=== PATIENT | female | born 1930 | race Caucasian/White ===

== ENCOUNTER 2017-08-26 14:59 | Inpatient (IN) | payer MEDICARE, MEDICAID ==
[2017-08-26 15:53] LABS: #Lymphocytes 2.1 thou/uL (1.20-3.40); #Monocytes 0.8 thou/uL (0.11-0.59); #Neutrophils 3.1 thou/uL (1.40-6.50); %Basophils 0.5 % (0.0-1.0); %Eosinophils 0.7 % (0.0-10.0); %Monocytes 13.5 % (0.0-10.0); %Neutrophils 50.4 % (42.0-75.0); Hemoglobin 10.9 g/dL (12.0-16.0); Mean Corpuscular HGB CONC 34.5 g/dL (32.0-36.0); Mean Corpuscular Hemoglobin 34.9 pg (27.0-31.0); Mean Platelet Volume 7.3 fL (7.4-10.4); Platelet Count 177 thou/uL (130-400); RBC Distribution Width 12.1 % (11.5-14.5); Red Blood Cell (RBC) Count 3.13 mill/uL (4.20-5.40); White Blood Cell (WBC) Count 6.1 thou/uL (4.8-10.8)
[2017-08-26 16:14] LABS: ALT (SGPT) 39 U/L (8-55); AST (SGOT) 63 U/L (5-34); Albumin 3.5 g/dL (3.4-4.8); Alkaline Phosphatase 107 U/L (40-150); Anion Gap 11 mmol/L (10-20); BUN (Urea Nitrogen) 17 mg/dL (9.8-20.1); Bilirubin, Total 0.5 mg/dL (0.2-1.2); Calc. Creatinine Clearance 0 mL/min (70-130); Calcium 9.2 mg/dL (7.8-10.44); Carbon Dioxide 25 mmol/L (23-31); Chloride 103 mmol/L (98-107); Estimated GFR-MDRD 60; Globulin 3.1 g/dL (2.4-3.5); Glucose 96 mg/dL (83-110); Magnesium 1.8 mg/dL (1.6-2.6); Potassium 4.2 mmol/L (3.5-5.1); Protein, Total 6.6 g/dL (6.0-8.3); Sodium 135 mmol/L (136-145)
[2017-08-26 16:18] LABS: CKMB 0.9 ng/mL (0-6.6); Troponin I Less than 0.010 ng/mL (< 0.028)
--- NOTE | 2017-08-26 16:37 | RAD ---
AP CHEST: Indication: Possible pneumonia. Chest pain. Comparison: 08-24-17 IMPRESSION: Cardiomegaly and chronic lung changes are stable. Calcified granuloma is seen involving the left uppe r lobe. No acute osseous abnormality is evident. POS: [facility]
[2017-08-26] MEDS ORDERED: Water For Inject, Bacteriostat 30 ML ONE (16:44)
[2017-08-26] MEDS ORDERED: methylPREDNISolone Sod Succ/PF 125 MG/2 ML VIAL ONE (16:44)
[2017-08-26] MEDS ORDERED: Furosemide 20 MG/2 ML VIAL ONE (18:05)
[2017-08-26 22:15] LABS: Troponin I Less than 0.010 ng/mL (< 0.028)
--- NOTE | 2017-08-26 23:21 | PDOC.EVN ---
Event Note - Event Note Event Note: Patient seen and examined.
[2017-08-26] MEDS ORDERED: Senokot 8.6 MG TAB PO PRN (23:24)
[2017-08-26] MEDS ORDERED: Ondansetron ODT 4 MG TAB PO PRN (23:24)
[2017-08-26] MEDS ORDERED: Milk Of Magnesia 30 ML UDCUP PO PRN (23:24)
[2017-08-26] MEDS ORDERED: Nitroglycerin 0.4 MG TAB (25 Tab Bottle) PO PRN (23:24)
[2017-08-26] MEDS ORDERED: Ondansetron HCl/PF 4 MG/2 ML Vial IVP PRN (23:24)
[2017-08-26] MEDS ORDERED: Fleet Enema 133 ML BOT PR PRN (23:24)
[2017-08-26] MEDS ORDERED: hydrALAZINE 20 MG/ML VIAL SLOW IVP PRN (23:29)
[2017-08-26] MEDS ORDERED: traMADol HCl 50 MG TAB PO PRN (23:33)
[2017-08-26] MEDS ORDERED: Melatonin 3 MG TAB PO PRN (23:36)
[2017-08-27] MEDS: cefTRIAXone\\ROCEPHIN 1 GM in Sodium Chloride 0.9% 100 ML IVPB SCH ×2 (00:39→23:59)
[2017-08-27] MEDS: Azithromycin 500 MG in Sodium Chloride 0.9% 250 ML 250 ML IVPB SCH (00:39)
[2017-08-27 04:37] LABS: #Lymphocytes 0.7 thou/uL (1.20-3.40); #Monocytes 0.1 thou/uL (0.11-0.59); #Neutrophils 3.8 thou/uL (1.40-6.50); %Eosinophils 0.2 % (0.0-10.0); %Lymphocytes 15.6 % (21.0-51.0); %Monocytes 1.6 % (0.0-10.0); %Neutrophils 82.6 % (42.0-75.0); Hemoglobin 10.5 g/dL (12.0-16.0); Mean Corpuscular HGB CONC 34.3 g/dL (32.0-36.0); Mean Corpuscular Hemoglobin 34.7 pg (27.0-31.0); Mean Platelet Volume 7.9 fL (7.4-10.4); Platelet Count 169 thou/uL (130-400); RBC Distribution Width 12.2 % (11.5-14.5); Red Blood Cell (RBC) Count 3.02 mill/uL (4.20-5.40); White Blood Cell (WBC) Count 4.6 thou/uL (4.8-10.8)
[2017-08-27 04:54] LABS: Albumin 3.2 g/dL (3.4-4.8); Anion Gap 12 mmol/L (10-20); BUN (Urea Nitrogen) 22 mg/dL (9.8-20.1); BUN/Creatinine Ratio 20.56; Calc. Creatinine Clearance 48 mL/min (70-130); Calcium 9.1 mg/dL (7.8-10.44); Carbon Dioxide 24 mmol/L (23-31); Chloride 103 mmol/L (98-107); Estimated GFR-MDRD 49; Glucose 205 mg/dL (83-110); Magnesium 1.9 mg/dL (1.6-2.6); Phosphorus 3.9 mg/dL (2.3-4.7); Potassium 4.3 mmol/L (3.5-5.1); Sodium 135 mmol/L (136-145)
--- NOTE | 2017-08-27 06:32 | HP ---
DATE OF ADMISSION: 08/26/2017 The patient was seen and examined on 08/26/2017. The patient was sent from [facility]. Her O2 saturation at home was 82%. CHIEF COMPLAINT: Shortness of breath and possible pneumonia. HISTORY OF PRESENT ILLNESS: The patient is an 86-year-old female currently residing at [facility] in long-term care, presented to the emergency room with shortness of breath and poor appetite ove r the past 4-5 days. Her O2 sats are running low. She had mild cough without significant production . She has a history of COPD and used to be on nebulizer treatments in the past. The patient is a po or historian and not much information is available from the patient. Her daughter was present in the emergency room who is the DPOA. The patient denies any chest pain, palpitations, lightheadedness, d izziness, or syncope. The patient received 20 mg of IV Lasix with Levaquin, DuoNebs and 125 mg Solu-Medrol in the emergency room. PAST MEDICAL HISTORY: 1. COPD. 2. Coronary artery disease, status post stent placement. 3. Alzheimer's dementia. 4. Deconditioning. 5. History of temporal arteritis. 6. Congestive heart failure, ejection fraction unknown. 7. Macular degeneration. Patient is legally blind. 8. History of recurrent falls. 9. Hyperlipidemia. 10. Paroxysmal atrial fibrillation. 11. History of cerebrovascular accident. 12. Degenerative joint disease. 13. Hypertension. PAST SURGICAL HISTORY: 1. Coronary stent x2. 2. Cholecystectomy. 3. Hysterectomy. 4. Appendectomy. 5. Hip surgery. ALLERGIES: The patient has no known drug allergies. CURRENT MEDICATIONS: To be verified with [facility]. Patient cannot recall any of her medicat ions. SOCIAL HISTORY: As discussed above. She has out of hospital DNR in the chart. This will be verifie d with the daughter. For time being, she will be FULL CODE. Daughter makes decision. FAMILY HISTORY: Heart disease and congestive heart failure runs in her family. REVIEW OF SYSTEMS: Cannot be reliably obtained from the patient due to current cognitive status. PHYSICAL EXAMINATION: VITAL SIGNS: In the emergency room showed temperature 98.4, respirations 16, pulse rate of 58, blood pressure of 144/86 with O2 saturation 94% on 3 liters O2. Without O2 supplementation, her O2 sats w ere in the 80s. GENERAL: An 86-year-old female in mild respiratory distress, no audible wheezing heard. Mild access ory muscle use noted. HEENT: Head is atraumatic, normocephalic, Sclerae are anicteric. Moist mucous membrane, no oral les ion. NECK: Supple, no JVD appreciated. No carotid bruit. LUNGS: Showed scattered rhonchi with minimal wheezing. There were some rales at the right base. No significant accessory muscle use. Lungs were symmetrical. HEART: S1 and S2 present. Regular rate and rhythm, 2/6 systolic murmur over the mitral area. ABDOMEN: Soft, nontender, bowel sounds present. EXTREMITIES: No edema or calf tenderness. NEUROLOGIC: Grossly nonfocal, moves all four extremities. PSYCHIATRY: Alert, awake and oriented x3. SKIN: Warm and dry. LYMPH NODES: No palpable lymph nodes in the neck. PERIPHERAL VASCULAR: Radial pulses palpable bilaterally. MUSCULOSKELETAL: No joint swelling or tenderness. LABORATORY DATA AND IMAGING DATA: CBC showed WBC 6.1 with hemoglobin 10.9, hematocrit 31.6 and plate let 177. Chemistries showed sodium 135, potassium 4.2, chloride 103, bicarbonate 25, BUN 17, creatin ine 0.9. AST was 63, otherwise LFTs in normal range. Troponins were negative. BNP was 270. Chest x-ray by my review showed questionable right basilar infiltrate. EKG by my review showed sinus juan cardia with left ventricular hypertrophy. IMPRESSION: 1. Acute hypoxic respiratory failure. 2. Chronic obstructive pulmonary disease exacerbation. 3. Community-acquired pneumonia, suspected pneumococcal. 4. Congestive heart failure suspected acute on chronic. Echocardiogram unavailable. 5. Mild dehydration with poor appetite. 6. Chronic anemia, macrocytic. Vitamin B12 and folic acid were normal earlier this year. 7. History of cerebrovascular without significant residual deficit. 8. Alzheimer's dementia. 9. Anxiety disorder. 10. Coronary artery disease, status post stent placement. 11. Hypertension. 12. Macular degeneration. 13. History of temporal arteritis. 14. History of recurrent falls. 15. Mild hyponatremia. PLAN: The patient will be monitored on the telemetry unit. Empiric antibiotics for pneumonia will b e continued. Home medications will be verified. We will start her on nebulizer treatment. We will continue gentle diuresis. Low dose prednisone for COPD exacerbation. Physical Therapy consult and O ccupation Therapy consult. We will verify code status with the daughter in a.m. Plan of care was discussed with the patient in detail. She stated understanding.
[2017-08-27] MEDS: Budesonide 0.5 MG/2 ML NEB INH SCH ×2 (07:16→19:30)
[2017-08-27] MEDS ORDERED: Famotidine 20 MG TAB PO SCH (09:00)
[2017-08-27] MEDS ORDERED: Prevnar 13-Val Conj/PF 0.5 ML SYRINGE IM ONE (09:00)
[2017-08-27] MEDS: predniSONE 5 MG TAB PO SCH ×2 (09:10→17:00)
[2017-08-27] MEDS: Amlodipine 5 MG TAB PO SCH ×2 (09:10→20:39)
[2017-08-27] MEDS: Aspirin 325 MG TAB PO SCH (09:10)
[2017-08-27] MEDS: Cyanocobalamin (Vitamin B-12) 1,000 MCG TAB PO SCH (09:11)
[2017-08-27] MEDS: Docusate 100 MG CAP PO SCH ×2 (09:11→20:39)
[2017-08-27] MEDS: Furosemide 20 MG/2 ML VIAL SLOW IVP SCH (09:12)
[2017-08-27] MEDS: Saccharomyces boulardii 250 MG CAP PO SCH (09:12)
[2017-08-27] MEDS: Heparin 5,000 UNITS/ML VIAL SC SCH ×2 (09:12→20:38)
[2017-08-27] MEDS: Famotidine 20 MG TAB PO SCH (09:12)
[2017-08-27] MEDS: Rosuvastatin 10 MG TAB PO SCH (20:39)
[2017-08-27] MEDS: Acetaminophen 325 MG TAB PO PRN (20:46)
--- NOTE | 2017-08-27 22:24 | PDOC.PN ---
- Subjective Encounter Start Date: 08/27/17 Encounter Start Time: 08:30 Patient seen and examined for Resp failure. SOB improving. No fever. Some cough. Passed swallow eval. No new complaints. No overnight events - Objective Resuscitation Status: Resuscitation Status DNR:Do Not Resuscitate MAR Reviewed: Yes Vital Signs & Weight: Vital Signs (12 hours) Temp Pulse Pulse Pulse Resp BP BP 08/27/17 20:39 69 142/67 H 08/27/17 20:00 97.7 F 71 20 08/27/17 19:28 69 16 08/27/17 16:00 97.9 F 66 18 08/27/17 14:56 64 16 08/27/17 14:30 61 61 132/59 L 08/27/17 11:47 63 16 08/27/17 11:44 98.9 F 63 19 BP BP Pulse Ox 08/27/17 20:39 08/27/17 20:00 142/67 H 94 L 08/27/17 19:28 96 08/27/17 16:00 148/68 H 96 08/27/17 14:56 98 08/27/17 14:30 131/60 08/27/17 11:47 97 08/27/17 11:44 161/73 H 96 Weight Admit Weight 172 lb Weight 180 lb I&O: 08/26/17 08/27/17 08/28/17 06:59 06:59 06:59 Intake Total 700 Output Total 400 Balance 300 Result Diagrams: 08/27/17 03:38 08/28/17 03:27 EKG Reviewed by me: Yes (Tele SR) Phys Exam - Physical Examination Constitutional: NAD Neck: no JVD Respiratory: no wheezing Scat rales/rhonchi, Symmetrical, No accessory muscle use Cardiovascular: RRR, no rub no heaves/pulsations Gastrointestinal: soft, non-tender, no distention, positive bowel sounds Musculoskeletal: no edema Neurological: non-focal, moves all 4 limbs Dx/Plan - Plan plan discussed w/ family, continue antibiotics, PT/OT, DVT proph w/heparin, DVT proph w/SCDs IMPRESSION: 1. Acute hypoxic respiratory failure. 2. Chronic obstructive pulmonary disease exacerbation. 3. Community-acquired pneumonia, suspected pneumococcal. 4. Congestive heart failure suspected acute on chronic. Echocardiogram pending. 5. Chronic anemia, macrocytic. Vitamin B12 and folic acid were normal earlier this year. 6. Mild hyponatremia 7. Alzheimer's dementia. 8. Anxiety disorder. 9. Coronary artery disease, status post stent placement. 10. Hypertension. 11. Macular degeneration / History of temporal arteritis/History of recurrent falls/History of cerebrovascular without significant residual deficit PLAN: Cont current Atbx/low dose steroids/Nebs Await Echo Cont gentle diuresis Consult Dr Pina in AM AM labs Cont PT/OT Plan d/w son Bacilio - DNR verified Cont other meds as below Review of Systems - Review of Systems Constitutional: negative: fever, chills, sweats, weakness, malaise, other Cardiovascular: negative: chest pain, palpitations, orthopnea, paroxysmal nocturnal dyspnea, edema, light headedness, other Gastrointestinal: negative: Nausea, Vomiting, Abdominal Pain, Diarrhea, Constipation, Melena, Hematochezia, Other - Medications/Allergies Allergies/Adverse Reactions: Allergies Allergy/AdvReac Type Severity Reaction Status Date / Time No Known Drug Allergies Allergy Verified 08/26/17 20:45 Medications: Current Medications Acetaminophen (Tylenol) 650 mg PO Q4H PRN PRN Reason: Headache/Fever or Pain Last Admin: 08/27/17 20:46 Dose: 650 mg Albuterol/Ipratropium (Duoneb) 3 ml NEB [id number] SCH Last Admin: 08/27/17 19:28 Dose: 3 ml Albuterol/Ipratropium (Duoneb) 3 ml NEB [id number] PRN PRN Reason: SOB &/or Wheezing Amlodipine Besylate (Norvasc) 5 mg PO BID [facility] Last Admin: 08/27/17 20:39 Dose: 5 mg Aspirin (Aspirin) 325 mg PO DAILY [facility] Last Admin: 08/27/17 09:10 Dose: 325 mg Budesonide (Pulmicort Neb Solution) 0.5 mg INH BID-RT [facility] Last Admin: 08/27/17 19:30 Dose: 0.5 mg Cyanocobalamin (Vitamin B-12) 500 mcg PO DAILY [facility] Last Admin: 08/27/17 09:11 Dose: 500 mcg Docusate Sodium (Colace) 100 mg PO BID [facility] Last Admin: 08/27/17 20:39 Dose: 100 mg Famotidine (Pepcid) 20 mg PO DAILY [facility] Last Admin: 08/27/17 09:12 Dose: 20 mg Furosemide (Lasix) 20 mg SLOW IVP DAILY [facility] Last Admin: 08/27/17 09:12 Dose: 20 mg Heparin Sodium (Porcine) (Heparin) 5,000 units SC BID [facility] Last Admin: 08/27/17 20:38 Dose: 5,000 units Hydralazine HCl (Apresoline) 10 mg SLOW IVP Q4H PRN PRN Reason: SBP Greater Than 180 Azithromycin 500 mg/ Sodium (Chloride) 250 mls @ 250 mls/hr IVPB Q24HR [facility] Last Admin: 08/27/17 00:39 Dose: 250 mls Ceftriaxone Sodium 1 gm/ (Sodium Chloride) 100 mls @ 200 mls/hr IVPB Q24HR [facility] Last Admin: 08/27/17 00:39 Dose: 100 mls Magnesium Hydroxide (Milk Of Magnesium) 30 ml PO DAILYPRN PRN PRN Reason: Constipation Melatonin (Melatonin) 3 mg PO HS PRN PRN Reason: Insomnia Metoprolol Succinate (Toprol Xl) 25 mg PO BID [facility] Last Admin: 08/27/17 20:39 Dose: 25 mg Nitroglycerin (Nitrostat) 0.4 mg PO Q5MIN PRN PRN Reason: Chest Pain Ondansetron HCl (Zofran Odt) 4 mg PO Q6H PRN PRN Reason: Nausea/Vomiting Prednisone (Prednisone) 10 mg PO BID-[facility] Last Admin: 08/27/17 17:00 Dose: 10 mg Ranolazine (Ranexa) 1,000 mg PO BID [facility] Last Admin: 08/27/17 20:39 Dose: 1,000 mg Rosuvastatin Calcium (Crestor) 10 mg PO HS [facility] Last Admin: 08/27/17 20:39 Dose: 10 mg Saccharomyces Boulardii (Florastor) 250 mg PO DAILY [facility] Last Admin: 08/27/17 09:12 Dose: 250 mg Senna (Senokot) 2 tab PO HSPRN PRN PRN Reason: Constipation Sodium Biphosphate/Sodium Phosphate (Fleet Enema) 133 ml LA ONE PRN PRN Reason: Constipation Stop: 09/05/17 23:25 Sodium Chloride (Flush - Normal Saline) 10 ml IVF Q12HR [facility] Last Admin: 08/27/17 20:40 Dose: 10 ml Sodium Chloride (Flush - Normal Saline) 10 ml IVF PRN PRN PRN Reason: Saline Flush Tramadol HCl (Ultram) 50 mg PO Q8H PRN PRN Reason: Moderate Pain (4-6)
[2017-08-28] MEDS: Azithromycin 500 MG in Sodium Chloride 0.9% 250 ML 250 ML IVPB SCH ×2 (00:13→23:10)
[2017-08-28 04:59] LABS: Albumin 3.1 g/dL (3.4-4.8); Anion Gap 14 mmol/L (10-20); BUN (Urea Nitrogen) 24 mg/dL (9.8-20.1); BUN/Creatinine Ratio 23.76; Calc. Creatinine Clearance 53 mL/min (70-130); Calcium 9.2 mg/dL (7.8-10.44); Carbon Dioxide 24 mmol/L (23-31); Chloride 101 mmol/L (98-107); Estimated GFR-MDRD 52; Glucose 196 mg/dL (83-110); Magnesium 1.9 mg/dL (1.6-2.6); Potassium 4.1 mmol/L (3.5-5.1); Sodium 135 mmol/L (136-145)
[2017-08-28] MEDS: Budesonide 0.5 MG/2 ML NEB INH SCH ×2 (07:18→19:10)
[2017-08-28] MEDS: predniSONE 5 MG TAB PO SCH ×2 (09:07→16:59)
[2017-08-28] MEDS: Aspirin 325 MG TAB PO SCH (09:08)
[2017-08-28] MEDS: Amlodipine 5 MG TAB PO SCH ×2 (09:08→20:10)
[2017-08-28] MEDS: Cyanocobalamin (Vitamin B-12) 1,000 MCG TAB PO SCH (09:08)
[2017-08-28] MEDS: Docusate 100 MG CAP PO SCH ×2 (09:09→20:11)
[2017-08-28] MEDS: Furosemide 20 MG/2 ML VIAL SLOW IVP SCH (09:10)
[2017-08-28] MEDS: Heparin 5,000 UNITS/ML VIAL SC SCH ×2 (09:10→20:11)
[2017-08-28] MEDS: Famotidine 20 MG TAB PO SCH (09:10)
[2017-08-28] MEDS: Saccharomyces boulardii 250 MG CAP PO SCH (09:11)
--- NOTE | 2017-08-28 19:56 | PDOC.PN ---
- Subjective Encounter Start Date: 08/28/17 Encounter Start Time: 08:30 Patient seen and examined for Resp failure. SOB improving. Some dry cough +. No new complaints. No overnight events - Objective Resuscitation Status: Resuscitation Status DNR:Do Not Resuscitate MAR Reviewed: Yes Vital Signs & Weight: Vital Signs (12 hours) Temp Pulse Pulse Pulse Resp BP BP 08/28/17 19:10 64 16 08/28/17 15:50 98.3 F 62 18 08/28/17 15:09 68 16 08/28/17 13:37 61 146/65 H 08/28/17 11:22 97.8 F 60 18 08/28/17 09:30 60 140/64 08/28/17 08:00 97.8 F 60 18 BP Pulse Ox 08/28/17 19:10 93 L 08/28/17 15:50 148/67 H 95 08/28/17 15:09 95 08/28/17 13:37 08/28/17 11:22 153/68 H 100 08/28/17 09:30 08/28/17 08:00 Weight Admit Weight 172 lb Weight 173 lb 4.8 oz I&O: 08/27/17 08/28/17 08/29/17 06:59 06:59 06:59 Intake Total 700 560 960 Output Total 400 1150 400 Balance 300 -590 560 Result Diagrams: 08/27/17 03:38 08/28/17 03:27 EKG Reviewed by me: Yes (Tele SR) Phys Exam - Physical Examination Constitutional: NAD Respiratory: no wheezing, no rhonchi Scat rales at bases Cardiovascular: RRR, no rub Gastrointestinal: soft, non-tender, positive bowel sounds Musculoskeletal: no edema Neurological: moves all 4 limbs Dx/Plan - Plan DVT proph w/heparin, DVT proph w/SCDs IMPRESSION: 1. Acute hypoxic respiratory failure. 2. Chronic obstructive pulmonary disease exacerbation. improving 3. Community-acquired pneumonia, suspected pneumococcal. 4. Congestive heart failure suspected acute on chronic. 5. Chronic anemia, macrocytic. 6. Mild hyponatremia 7. Alzheimer's dementia. 8. Anxiety disorder. 9. Coronary artery disease, status post stent placement. 10. Hypertension. 11. Macular degeneration / History of temporal arteritis/History of recurrent falls/History of cerebrovascular without significant residual deficit PLAN: Await Echo Cont current Atbx/low dose steroids/Nebs Cont IV Lasix Cont PT/OT Cont other meds as below Review of Systems - Review of Systems Respiratory: Cough, Dry, SOB with Excertion. negative: Shortness of Breath, Hemoptysis, Pleuritic Pain, Sputum, Wheezing Cardiovascular: negative: chest pain, palpitations, orthopnea, paroxysmal nocturnal dyspnea, edema, light headedness, other - Medications/Allergies Allergies/Adverse Reactions: Allergies Allergy/AdvReac Type Severity Reaction Status Date / Time No Known Drug Allergies Allergy Verified 08/26/17 20:45 Medications: Current Medications Acetaminophen (Tylenol) 650 mg PO Q4H PRN PRN Reason: Headache/Fever or Pain Last Admin: 08/27/17 20:46 Dose: 650 mg Albuterol/Ipratropium (Duoneb) 3 ml NEB [id number] [facility] Last Admin: 08/28/17 19:10 Dose: 3 ml Albuterol/Ipratropium (Duoneb) 3 ml NEB [id number] PRN PRN Reason: SOB &/or Wheezing Amlodipine Besylate (Norvasc) 5 mg PO BID [facility] Last Admin: 08/28/17 09:08 Dose: 5 mg Aspirin (Aspirin) 325 mg PO DAILY [facility] Last Admin: 08/28/17 09:08 Dose: 325 mg Budesonide (Pulmicort Neb Solution) 0.5 mg INH BID-RT [facility] Last Admin: 08/28/17 19:10 Dose: 0.5 mg Cyanocobalamin (Vitamin B-12) 500 mcg PO DAILY [facility] Last Admin: 08/28/17 09:08 Dose: 500 mcg Docusate Sodium (Colace) 100 mg PO BID [facility] Last Admin: 08/28/17 09:09 Dose: 100 mg Famotidine (Pepcid) 20 mg PO DAILY [facility] Last Admin: 08/28/17 09:10 Dose: 20 mg Furosemide (Lasix) 20 mg SLOW IVP DAILY [facility] Last Admin: 08/28/17 09:10 Dose: 20 mg Heparin Sodium (Porcine) (Heparin) 5,000 units SC BID [facility] Last Admin: 08/28/17 09:10 Dose: 5,000 units Hydralazine HCl (Apresoline) 10 mg SLOW IVP Q4H PRN PRN Reason: SBP Greater Than 180 Azithromycin 500 mg/ Sodium (Chloride) 250 mls @ 250 mls/hr IVPB Q24HR [facility] Last Admin: 08/28/17 00:13 Dose: 250 mls Ceftriaxone Sodium 1 gm/ (Sodium Chloride) 100 mls @ 200 mls/hr IVPB Q24HR [facility] Last Admin: 08/27/17 23:59 Dose: 100 mls Magnesium Hydroxide (Milk Of Magnesium) 30 ml PO DAILYPRN PRN PRN Reason: Constipation Melatonin (Melatonin) 3 mg PO HS PRN PRN Reason: Insomnia Metoprolol Succinate (Toprol Xl) 25 mg PO BID [facility] Last Admin: 08/28/17 09:11 Dose: 25 mg Nitroglycerin (Nitrostat) 0.4 mg PO Q5MIN PRN PRN Reason: Chest Pain Ondansetron HCl (Zofran Odt) 4 mg PO Q6H PRN PRN Reason: Nausea/Vomiting Prednisone (Prednisone) 10 mg PO BID-[facility] Last Admin: 08/28/17 16:59 Dose: 10 mg Ranolazine (Ranexa) 1,000 mg PO BID [facility] Last Admin: 08/28/17 09:11 Dose: 1,000 mg Rosuvastatin Calcium (Crestor) 10 mg PO HS [facility] Last Admin: 08/27/17 20:39 Dose: 10 mg Saccharomyces Boulardii (Florastor) 250 mg PO DAILY [facility] Last Admin: 08/28/17 09:11 Dose: 250 mg Senna (Senokot) 2 tab PO HSPRN PRN PRN Reason: Constipation Sodium Biphosphate/Sodium Phosphate (Fleet Enema) 133 ml [place] ONE PRN PRN Reason: Constipation Stop: 09/05/17 23:25 Sodium Chloride (Flush - Normal Saline) 10 ml IVF Q12HR [facility] Last Admin: 08/28/17 09:11 Dose: 10 ml Sodium Chloride (Flush - Normal Saline) 10 ml IVF PRN PRN PRN Reason: Saline Flush Tramadol HCl (Ultram) 50 mg PO Q8H PRN PRN Reason: Moderate Pain (4-6)
[2017-08-28] MEDS: Rosuvastatin 10 MG TAB PO SCH (20:10)
--- NOTE | 2017-08-28 21:37 | CON ---
DATE OF CONSULTATION: 08/28/2017 SUBJECTIVE: Ms. Gomes is an 86-year-old female. She has dementia, so she is a poor historian. Apparently, she presented with complaints of shortness of breath. She lives at [facility]. She was admitted for further care. She reportedly has COPD. PAST MEDICAL HISTORY: 1. Otherwise remarkable for dementia. 2. History of coronary stenting in the past. 3. History of temporal arteritis. 4. History of cardiomyopathy. 5. History of legal blindness secondary to macular degeneration. 6. History of falls. 7. History of atrial fibrillation. 8. History of a cerebrovascular accident. 9. History of hypertension. PAST SURGICAL HISTORY: History of cholecystectomy, hysterectomy, appendectomy, and hip surgery. SOCIAL HISTORY: She is nonsmoker and nondrinker. ALLERGIES: She has no drug allergies. FAMILY HISTORY: Negative for lung disease in early age. There is heart disease history. REVIEW OF SYSTEMS: Not obtainable because of her dementia. PHYSICAL EXAMINATION: GENERAL: She is pleasant, resting comfortably. VITAL SIGNS: She is afebrile, heart rate 60, respiratory rate is 18, oximetry is 100% on 1 liter, blood pressure 146/65. EYES: Sclerae is anicteric. NECK: Supple. She is oriented x1. She is in no distress. She has no lymphadenopathy. LUNGS: Clear. HEART: Regular rhythm, there is grade 2/6 systolic murmur. ABDOMEN: Soft and nontender. EXTREMITIES: Without clubbing, cyanosis, or edema. IMAGING DATA: Chest radiograph is unremarkable. She has calcified granuloma in her left upper lobe. IMPRESSION AND PLAN: Chronic obstructive pulmonary disease exacerbation with bronchitis. I suspect she has returned to her baseline. She can be moved off the telemetry unit. In my opinion, she is stable to go back to her [facility] environment, probably tomorrow. I do not think she needs IV antibiotics given that she has no infiltrates on her chest radiograph. She could be adequately treated with p.o. antimicrobial. This is a 50 minute consult, greater than 50% of the time spent on the unit with coordinating care. ANDREI
[2017-08-28] MEDS: cefTRIAXone\\ROCEPHIN 1 GM in Sodium Chloride 0.9% 100 ML IVPB SCH (23:11)
[2017-08-29] MEDS: Budesonide 0.5 MG/2 ML NEB INH SCH ×2 (07:49→18:32)
[2017-08-29] MEDS: Amlodipine 5 MG TAB PO SCH ×2 (09:11→20:56)
[2017-08-29] MEDS: Cyanocobalamin (Vitamin B-12) 1,000 MCG TAB PO SCH (09:11)
[2017-08-29] MEDS: Saccharomyces boulardii 250 MG CAP PO SCH (09:11)
[2017-08-29] MEDS: predniSONE 5 MG TAB PO SCH ×2 (09:11→16:48)
[2017-08-29] MEDS: Docusate 100 MG CAP PO SCH ×2 (09:12→20:55)
[2017-08-29] MEDS: Famotidine 20 MG TAB PO SCH (09:12)
[2017-08-29] MEDS: Aspirin 325 MG TAB PO SCH (09:12)
[2017-08-29] MEDS: Furosemide 20 MG/2 ML VIAL SLOW IVP SCH (09:12)
[2017-08-29] MEDS: Heparin 5,000 UNITS/ML VIAL SC SCH ×2 (09:12→20:57)
--- NOTE | 2017-08-29 14:25 | PDOC.PN ---
- Subjective Encounter Start Date: 08/29/17 Encounter Start Time: 11:00 Pt is seen today, very lethargic and drowsy. - Objective Resuscitation Status: Resuscitation Status DNR:Do Not Resuscitate MAR Reviewed: Yes Vital Signs & Weight: Vital Signs (12 hours) Temp Pulse Pulse Resp BP BP Pulse Ox 08/29/17 13:10 98.1 F 62 18 135/65 93 L 08/29/17 10:48 62 16 91 L 08/29/17 09:28 60 153/67 H 08/29/17 08:42 93 L 08/29/17 08:30 98.3 F 70 16 94 L 08/29/17 07:48 70 16 93 L 08/29/17 07:45 98.3 F 65 17 151/69 H 94 L 08/29/17 02:55 98.0 F 60 14 140/66 93 L Weight Admit Weight 172 lb Weight 175 lb 14.4 oz I&O: 08/28/17 08/29/17 08/30/17 06:59 06:59 06:59 Intake Total 560 1710 Output Total 1150 400 Balance -590 1310 Result Diagrams: 08/27/17 03:38 08/28/17 03:27 Radiology Reviewed by me: Yes Phys Exam - Physical Examination HEENT: PERRLA, moist MMs Neck: no nodes, no JVD Respiratory: no wheezing, no rales Cardiovascular: RRR, no significant murmur Gastrointestinal: soft, non-tender Musculoskeletal: no edema, pulses present Neurological: non-focal, normal sensation Lymphatic: no nodes Skin: no rash, normal turgor Dx/Plan (1) Acute respiratory failure with hypoxia Code(s): J96.01 - ACUTE RESPIRATORY FAILURE WITH HYPOXIA Status: Acute Comment: Imrpoving On NC now. Likely from PNA and COPD (2) COPD with acute exacerbation Code(s): J44.1 - CHRONIC OBSTRUCTIVE PULMONARY DISEASE W (ACUTE) EXACERBATION Status: Acute Comment: Dr. Pina is consulted. Will folow recommedations, Continue Nebs on IV steroids. (3) CHF, acute on chronic Code(s): I50.9 - HEART FAILURE, UNSPECIFIED Status: Acute Comment: Pt is on IV lasix, COntinue to Monitor Chest Xray looks stbale from few days. (4) Pneumonia Code(s): J18.9 - PNEUMONIA, UNSPECIFIED ORGANISM Status: Acute Comment: Continue on Azithromycina nd Rocephin total 8 days Abx. (5) Hyponatremia Code(s): E87.1 - HYPO-OSMOLALITY AND HYPONATREMIA Status: Acute Comment: Improving, Continue to Monitor pt is on lasix. (6) Dementia Code(s): F03.90 - UNSPECIFIED DEMENTIA WITHOUT BEHAVIORAL DISTURBANCE Status: Acute Comment: Chronic, Worsieng since this admission. - Plan cont current plan of care, continue antibiotics, PT/OT, social media marketer, respiratory therapy, incentive spirometry, DVT proph w/lovenox * . Review of Systems - Review of Systems Constitutional: weakness, malaise Eyes: negative: Pain, Vision Change, Conjunctivae Inflammation, Eyelid Inflammation, Redness, Other ENT: negative: Ear Pain, Ear Discharge, Nose Pain, Nose Discharge, Nose Congestion, Mouth Pain, Mouth Swelling, Throat Pain, Throat Swelling, Other Respiratory: negative: Cough, Dry, Shortness of Breath, Hemoptysis, SOB with Excertion, Pleuritic Pain, Sputum, Wheezing Cardiovascular: negative: chest pain, palpitations, orthopnea, paroxysmal nocturnal dyspnea, edema, light headedness, other Gastrointestinal: negative: Nausea, Vomiting, Abdominal Pain, Diarrhea, Constipation, Melena, Hematochezia, Other Musculoskeletal: negative: Neck Pain, Shoulder Pain, Arm Pain, Back Pain, Hand Pain, Leg Pain, Foot Pain, Other Skin: negative: Rash, Lesions, Jeremias, Bruising, Other - Medications/Allergies Allergies/Adverse Reactions: Allergies Allergy/AdvReac Type Severity Reaction Status Date / Time No Known Drug Allergies Allergy Verified 08/26/17 20:45 Medications: Current Medications Acetaminophen (Tylenol) 650 mg PO Q4H PRN PRN Reason: Headache/Fever or Pain Last Admin: 08/27/17 20:46 Dose: 650 mg Albuterol/Ipratropium (Duoneb) 3 ml NEB [id number] Last Admin: 08/29/17 10:48 Dose: 3 ml Albuterol/Ipratropium (Duoneb) 3 ml NEB Q3RA-IH PRN PRN Reason: SOB &/or Wheezing Amlodipine Besylate (Norvasc) 5 mg PO BID [facility] Last Admin: 08/29/17 09:11 Dose: 5 mg Aspirin (Aspirin) 325 mg PO DAILY [facility] Last Admin: 08/29/17 09:12 Dose: 325 mg Budesonide (Pulmicort Neb Solution) 0.5 mg INH BID-RT [facility] Last Admin: 08/29/17 07:49 Dose: 0.5 mg Cyanocobalamin (Vitamin B-12) 500 mcg PO DAILY [facility] Last Admin: 08/29/17 09:11 Dose: 500 mcg Docusate Sodium (Colace) 100 mg PO BID [facility] Last Admin: 08/29/17 09:12 Dose: 100 mg Famotidine (Pepcid) 20 mg PO DAILY [facility] Last Admin: 08/29/17 09:12 Dose: 20 mg Furosemide (Lasix) 20 mg SLOW IVP DAILY [facility] Last Admin: 08/29/17 09:12 Dose: 20 mg Heparin Sodium (Porcine) (Heparin) 5,000 units SC BID [facility] Last Admin: 08/29/17 09:12 Dose: 5,000 units Hydralazine HCl (Apresoline) 10 mg SLOW IVP Q4H PRN PRN Reason: SBP Greater Than 180 Azithromycin 500 mg/ Sodium (Chloride) 250 mls @ 250 mls/hr IVPB Q24HR [facility] Last Admin: 08/28/17 23:10 Dose: 250 mls Ceftriaxone Sodium 1 gm/ (Sodium Chloride) 100 mls @ 200 mls/hr IVPB Q24HR [facility] Last Admin: 08/28/17 23:11 Dose: 100 mls Magnesium Hydroxide (Milk Of Magnesium) 30 ml PO DAILYPRN PRN PRN Reason: Constipation Melatonin (Melatonin) 3 mg PO HS PRN PRN Reason: Insomnia Metoprolol Succinate (Toprol Xl) 25 mg PO BID [facility] Last Admin: 08/29/17 09:12 Dose: 25 mg Nitroglycerin (Nitrostat) 0.4 mg PO Q5MIN PRN PRN Reason: Chest Pain Ondansetron HCl (Zofran Odt) 4 mg PO Q6H PRN PRN Reason: Nausea/Vomiting Prednisone (Prednisone) 10 mg PO BID-WM [facility] Last Admin: 08/29/17 09:11 Dose: 10 mg Ranolazine (Ranexa) 1,000 mg PO BID [facility] Last Admin: 08/29/17 09:11 Dose: 1,000 mg Rosuvastatin Calcium (Crestor) 10 mg PO HS [facility] Last Admin: 08/28/17 20:10 Dose: 10 mg Saccharomyces Boulardii (Florastor) 250 mg PO DAILY [facility] Last Admin: 08/29/17 09:11 Dose: 250 mg Senna (Senokot) 2 tab PO HSPRN PRN PRN Reason: Constipation Sodium Biphosphate/Sodium Phosphate (Fleet Enema) 133 ml WI ONE PRN PRN Reason: Constipation Stop: 09/05/17 23:25 Sodium Chloride (Flush - Normal Saline) 10 ml IVF Q12HR [facility] Last Admin: 08/29/17 09:13 Dose: 10 ml Sodium Chloride (Flush - Normal Saline) 10 ml IVF PRN PRN PRN Reason: Saline Flush Tramadol HCl (Ultram) 50 mg PO Q8H PRN PRN Reason: Moderate Pain (4-6)
[2017-08-29] MEDS: Rosuvastatin 10 MG TAB PO SCH (20:57)
[2017-08-29] MEDS: Azithromycin 500 MG in Sodium Chloride 0.9% 250 ML 250 ML IVPB SCH (22:38)
[2017-08-29] MEDS: cefTRIAXone\\ROCEPHIN 1 GM in Sodium Chloride 0.9% 100 ML IVPB SCH (22:38)
[2017-08-30] MEDS: Acetaminophen 325 MG TAB PO PRN (02:13)
[2017-08-30] MEDS: Budesonide 0.5 MG/2 ML NEB INH SCH (06:29)
[2017-08-30] MEDS: Amlodipine 5 MG TAB PO SCH (09:53)
[2017-08-30] MEDS: predniSONE 5 MG TAB PO SCH ×2 (09:53→17:04)
[2017-08-30] MEDS: Famotidine 20 MG TAB PO SCH (09:54)
[2017-08-30] MEDS: Cyanocobalamin (Vitamin B-12) 1,000 MCG TAB PO SCH (09:54)
[2017-08-30] MEDS: Aspirin 325 MG TAB PO SCH (09:54)
[2017-08-30] MEDS: Heparin 5,000 UNITS/ML VIAL SC SCH (09:54)
[2017-08-30] MEDS: Furosemide 20 MG/2 ML VIAL SLOW IVP SCH (09:54)
[2017-08-30] MEDS: Docusate 100 MG CAP PO SCH (09:54)
[2017-08-30] MEDS: Saccharomyces boulardii 250 MG CAP PO SCH (09:55)
[2017-08-30 13:29] VITALS: BMI 29.7
--- NOTE | 2017-08-30 14:14 | PQF ---
CLINICAL DOCUMENTATION IMPROVEMENT CLARIFICATION FORM: ICD-10 Updated PLEASE DO AN ADDENDUM TO THE PROGRESS NOTE WITH ANY DOCUMENTATION UPDATES OR ADDITIONS AND CARRY THROUGH TO DC SUMMARY. THANK YOU. DATE: 08/30/17 ATTN: DR. CRUZ Please exercise your independent, professional judgment in responding to the clarification form. Clinical indicators are provided on the bottom of this form for your review Please check appropriate box(s): HEART FAILURE: TYPE: [ ] Systolic / HFrEF [ x ] Diastolic / HFpEF [ ] Combined Systolic / Diastolic [ ] Other diagnosis [ ] Unable to determine In addition, please specify: Present on Admission (POA): [ x] Yes [ ] No [ ] Unable to determine For continuity of documentation, please document condition throughout progress notes and discharge summary. Thank You. CLINICAL INDICATORS - SIGNS / SYMPTOMS / LABS PROGRESS NOTE 08/29: "CHF, ACUTE ON CHRONIC" BNP (08/26): 270.6 RISKS: H/O HTN (PER H&P 08/27) H/O CAD (PER H&P 08/27) TREATMENT: LASIX (ER-08/30) TELEMETRY MONITORING ECHOCARDIOGRAM (This form is maintained as a part of the permanent medical record) 2014 [employer]. All Rights Reserved [email or web address] Office: [phone] [facility] HOSPITALReinaldo
[2017-08-30 17:03] VITALS: BP 172/72; TEMP 98.5
--- NOTE | 2017-09-01 12:46 | EKG ---
Test Reason : Blood Pressure : / mmHG Vent. Rate : 056 BPM Atrial Rate : 056 BPM P-R Int : 162 ms QRS Dur : 090 ms QT Int : 464 ms P-R-T Axes : 066 012 074 degrees QTc Int : 447 ms Sinus bradycardia Minimal voltage criteria for LVH, may be normal variant Borderline ECG Confirmed by LUISA PAUL ([id number]), production editor HEATHER HOLDER ([id number]) on 09/01/2017 12:46:14 PM Referred By: Confirmed By:LUISA APUL
== END 2017-08-30 18:52 | DRG 291 ==
LOC: ERS 14:59 → 2NO 17:39
PROVIDERS: ADMIT Internal Medicine; ATTEND Internal Medicine
DX: I11.0 Hypertensive heart disease with heart failure (principal); J13 Pneumonia due to Streptococcus pneumoniae; J96.01 Acute respiratory failure with hypoxia; J44.1 Chronic obstructive pulmonary disease with (acute) exacerbation; E87.1 Hypo-osmolality and hyponatremia; J44.0 Chronic obstructive pulmonary disease with (acute) lower respiratory infection; I50.33 Acute on chronic diastolic (congestive) heart failure; Z66 Do not resuscitate; D64.9 Anemia, unspecified; G30.9 Alzheimer's disease, unspecified; F02.80 Dementia in other diseases classified elsewhere, unspecified severity, without behavioral disturbance, psychotic disturbance, mood disturbance, and anxiety; F41.9 Anxiety disorder, unspecified; Z95.5 Presence of coronary angioplasty implant and graft; H35.30 Unspecified macular degeneration
CPT/HCPCS: 36415; 71045; 80053; 80069; 82553; 83605; 83735; 83880; 84484; 85025; 86140; 93005; 93306; 93798; 94640; 94760; 96365; 96366; 96375; A4216; G8978-GP-CK; G8979-GP-CJ; G8987-GO-CJ; G8988-GO-CI; G8996-GN-CI; G8997-GN-CI; J0456; J0696; J1644; J1940; J1956; J2930; J7050; J7620; J7626

== ENCOUNTER 2018-03-30 16:21 | Emergency (ER) | payer MEDICARE ==
--- NOTE | 2018-03-30 17:08 | CT ---
CT BRAIN WITHOUT CONTRAST: 03/30/18 HISTORY: Fall from standing. COMPARISON: None. FINDINGS: There is moderate to severe atrophy. No acute hemorrhage or infarct. No midline shift or mass effect. Ventricular size and extra-axial CSF spaces are normal. Calvarium is intact. The paranasal sinuses and mastoids are relatively clear aside from small volume fluid in the left mastoids. IMPRESSION: Chronic findings. No acute intracranial abnormality. POS: [facility]
[2018-03-30] MEDS ORDERED: Bacitracin Zinc 1 Packet ONE (17:39)
[2018-03-30 18:17] LABS: #Basophils 0.1 thou/uL (0.0-0.2); #Eosinphils 0.1 thou/uL (0.0-0.7); #Lymphocytes 2.5 thou/uL (1.20-3.40); #Monocytes 1.1 thou/uL (0.11-0.59); #Neutrophils 5.7 thou/uL (1.40-6.50); %Basophils 0.7 % (0.0-1.0); %Eosinophils 0.9 % (0.0-10.0); %Lymphocytes 26.4 % (21.0-51.0); %Monocytes 11.3 % (0.0-10.0); %Neutrophils 60.8 % (42.0-75.0); Hemoglobin 10.9 g/dL (12.0-16.0); Mean Corpuscular HGB CONC 33.2 g/dL (32.0-36.0); Mean Platelet Volume 8.2 fL (7.4-10.4); Platelet Count 210 thou/uL (130-400); RBC Distribution Width 11.8 % (11.5-14.5); White Blood Cell (WBC) Count 9.4 thou/uL (4.8-10.8)
[2018-03-30 18:32] LABS: MDiff Complete? YES; Macrocytosis SLIGHT = 6-15 cells (100X) (0-5/hpf); Platelet Morphology Comment Appears Adequate; Polychromasia SLIGHT = 2-3 cells (100X) (0-2/hpf)
[2018-03-30 18:38] LABS: Bilirubin Negative (Negative); Blood, Urine Negative (Negative); Clarity CLEAR (Clear); Glucose, Urine (Dipstick) Negative (Negative); Leukocyte Negative (Negative); Nitrite Negative (Negative); Protein, Urine (Dipstick) Negative (Neg-Trace); Specific Gravity, Urine 1.012 (1.002-1.036); Urobilinogen 0.2 mg/dL (0.2-1.0); pH, Urine 6.5 (5.0-9.0)
[2018-03-30 18:57] LABS: Albumin 3.7 g/dL (3.4-4.8)
[2018-03-30 18:59] LABS: Calcium 9.5 mg/dL (7.8-10.44); Chloride 102 mmol/L (98-107); Potassium 4.8 mmol/L (3.5-5.1); Sodium 137 mmol/L (136-145)
[2018-03-30 19:00] LABS: Globulin 3.2 g/dL (2.4-3.5); Glucose 114 mg/dL (83-110); Protein, Total 6.9 g/dL (6.0-8.3)
[2018-03-30 19:01] LABS: Anion Gap 19 mmol/L (10-20); Carbon Dioxide 21 mmol/L (23-31)
[2018-03-30 19:02] LABS: Bilirubin, Total 0.4 mg/dL (0.2-1.2)
[2018-03-30 19:03] LABS: Alkaline Phosphatase 108 U/L (40-150); Calc. Creatinine Clearance 0 mL/min (70-130); Estimated GFR-MDRD 38
[2018-03-30 19:04] LABS: BUN (Urea Nitrogen) 28 mg/dL (9.8-20.1)
[2018-03-30 19:05] LABS: AST (SGOT) 20 U/L (5-34)
[2018-03-30 19:06] LABS: ALT (SGPT) 22 U/L (8-55)
== END 2018-03-30 19:15 ==
LOC: ERS 16:21
DX: S00.03XA Contusion of scalp, initial encounter (principal); R42 Dizziness and giddiness; F03.90 Unspecified dementia, unspecified severity, without behavioral disturbance, psychotic disturbance, mood disturbance, and anxiety; J44.9 Chronic obstructive pulmonary disease, unspecified; M19.90 Unspecified osteoarthritis, unspecified site; I10 Essential (primary) hypertension; F41.9 Anxiety disorder, unspecified; Z79.51 Long term (current) use of inhaled steroids; Z86.73 Personal history of transient ischemic attack (TIA), and cerebral infarction without residual deficits; Z79.899 Other long term (current) drug therapy; Z79.82 Long term (current) use of aspirin; Z79.891 Long term (current) use of opiate analgesic; W07.XXXA Fall from chair, initial encounter
CPT/HCPCS: 51701; 70450; 80053; 81003; 83880; 84484; 85025; 93005; A4353

== ENCOUNTER 2018-04-10 17:42 | Inpatient (IN) | payer MEDICARE, MEDICAID ==
--- NOTE | 2018-04-10 18:58 | CT ---
HEAD CT WITHOUT CONTRAST: 04/10/18 HISTORY: Fall. COMPARISON: 03/30/18 TECHNIQUE: Noncontrast head CT is performed from skull base to skull vertex. FINDINGS: Age appropriate atrophy. Cortical eddy-white matter differentiation is preserved. Stable configuration of the ventricular system. No midline shift. Basilar cisterns are patent. No parenchymal hemorrhage or extra-axial hematoma. Calvarium is intact. Partial opacification of the left mastoid air cells, similar to the previous exa mination. There is bilateral maxillary sinus disease which has developed since the previous study. IMPRESSION: 1. No intracranial posttraumatic sequela. 2. Bilateral maxillary sinus disease. POS: [facility]
--- NOTE | 2018-04-10 19:08 | RAD ---
LEFT SHOULDER THREE VIEWS: 04/10/18 HISTORY: Fall. Pain. COMPARISON: None. FINDINGS: there is a well corticated ossific density inferior to the left glenoid. Findings suggest a remote av ulsive injury. No obvious dislocation. The visualized right ribs are unremarkable. Calcified granuloma in the left lung is noted. IMPRESSION: No acute fracture or dislocation. POS: [facility]
--- NOTE | 2018-04-10 19:09 | RAD ---
RIGHT KNEE FOUR VIEW 04/10/18 HISTORY: Fall. COMPARISON: None. FINDINGS: There is no acute fracture or malalignment. Mild prepatellar soft tissue swelling. Possible superfici al bandage. Mild enthesopathic changes of the quadriceps tendon. Mild vascular calcifications. IMPRESSION: 1. Prepatellar soft tissue swelling. 2. Likely an old lateral femoral condylar injury. POS: [facility]
--- NOTE | 2018-04-10 19:14 | CT ---
CT CERVICAL SPINE WITHOUT CONTRAST 04/10/18 HISTORY: Mechanical fall. Pain. COMPARISON: None. FINDINGS: No craniocervical dissociation. Appropriate alignment of the lateral masses of C1 and C2 as well as t he facets. Intact odontoid process. There is diffuse anterior bridging osteophytes throughout the cer vical spine from C4 through C7. Cervical spine vertebral body height is maintained. No acute fracture . There is lack of complete segmentation of C2 and C3. Soft tissue neck structures are unremarkable. Atherosclerosis of both carotid arteries, possibly mik re in the left carotid artery. Heterogeneous attenuation of the thyroid gland. Lung apices are unremarkable. Varying degrees of significant foraminal stenosis due to facet hypertrophy. Evaluation is limited by technique. IMPRESSION: 1. No cervical spine fracture. 2. Lack of complete segmentation of C2 and C3. 3. Multilevel significant foraminal narrowing due to facet hypertrophy. 4. Probable severe stenosis of the left carotid artery secondary to atherosclerotic disease. Trinh luation is limited by this exam. Nonemergent carotid ultrasound can be performed. POS: [facility]
[2018-04-10 19:17] LABS: Bilirubin Negative (Negative); Blood, Urine Negative (Negative); Clarity CLEAR (Clear); Glucose, Urine (Dipstick) Negative (Negative); Leukocyte Negative (Negative); Nitrite Negative (Negative); Protein, Urine (Dipstick) Negative (Neg-Trace); Specific Gravity, Urine 1.008 (1.002-1.036); Urobilinogen 0.2 mg/dL (0.2-1.0)
--- NOTE | 2018-04-10 19:22 | RAD ---
ONE VIEW CHEST ABDOMEN TWO VIEWS 04/10/18 HISTORY: Mechanical fall. Pain. Evaluate for constipation. FINDINGS: ONE VIEW CHEST: Atherosclerosis of the aorta. Normal cardiac silhouette. The pulmonary vessels and hilum are normal. Costophrenic angles are clear. No masses or consolidation. The lungs are hyperinflated. No pneumotho rax or acute osseous abnormalities. Calcified granuloma in the left mid lung is noted. TWO VIEWS ABDOMEN: Nonspecific bowel gas pattern. No suspicious densities in the abdomen or pelvis. Punctate densities i n the left hemiabdomen are presumed to be vascular. No differential air fluid levels. No pneumoperito neum. Surgical clips in the right upper quadrant are noted. IMPRESSION: 1. No acute cardiopulmonary process. 2. Nonspecific bowel gas pattern. POS: [facility]
[2018-04-10 19:23] LABS: #Eosinphils 0.1 thou/uL (0.0-0.7); #Lymphocytes 2.1 thou/uL (1.20-3.40); #Monocytes 0.8 thou/uL (0.11-0.59); #Neutrophils 6.9 thou/uL (1.40-6.50); %Basophils 0.5 % (0.0-1.0); %Eosinophils 0.9 % (0.0-10.0); %Lymphocytes 21.3 % (21.0-51.0); %Neutrophils 69.3 % (42.0-75.0); Hemoglobin 10.8 g/dL (12.0-16.0); Mean Corpuscular HGB CONC 32.4 g/dL (32.0-36.0); Mean Corpuscular Hemoglobin 34.2 pg (27.0-31.0); Mean Platelet Volume 7.6 fL (7.4-10.4); Platelet Count 266 thou/uL (130-400); RBC Distribution Width 11.6 % (11.5-14.5); Red Blood Cell (RBC) Count 3.15 mill/uL (4.20-5.40); White Blood Cell (WBC) Count 9.9 thou/uL (4.8-10.8)
[2018-04-10 19:45] LABS: ALT (SGPT) 20 U/L (8-55); AST (SGOT) 17 U/L (5-34); Albumin 3.6 g/dL (3.4-4.8); Alkaline Phosphatase 121 U/L (40-150); Anion Gap 15 mmol/L (10-20); BUN (Urea Nitrogen) 29 mg/dL (9.8-20.1); Bilirubin, Total 0.3 mg/dL (0.2-1.2); Calc. Creatinine Clearance 0 mL/min (70-130); Calcium 9.7 mg/dL (7.8-10.44); Carbon Dioxide 24 mmol/L (23-31); Chloride 102 mmol/L (98-107); Estimated GFR-MDRD 38; Globulin 3.7 g/dL (2.4-3.5); Glucose 147 mg/dL (83-110); Potassium 4.3 mmol/L (3.5-5.1); Protein, Total 7.3 g/dL (6.0-8.3); Sodium 137 mmol/L (136-145)
[2018-04-10 22:53] LABS: Troponin I 0.011 ng/mL (< 0.028)
[2018-04-10] MEDS ORDERED: Bisacodyl 5 MG TAB PO PRN (23:30)
[2018-04-10] MEDS ORDERED: Acetaminophen 325 MG TAB PO PRN (23:30)
[2018-04-10] MEDS ORDERED: Artificial Tears 18 DROP/0.9 ML EA EYE PRN (23:30)
[2018-04-10] MEDS ORDERED: Eucerin (Mineral Oil/Petrolatum,White) 30 gm Jar TOP PRN (23:30)
[2018-04-10] MEDS ORDERED: Sodium Chloride 0.65% Nasal 44 ML BOT EA NARE PRN (23:30)
[2018-04-10] MEDS ORDERED: Ondansetron ODT 4 MG TAB PO PRN (23:30)
[2018-04-10] MEDS ORDERED: Melatonin 3 MG TAB PO PRN (23:30)
[2018-04-10] MEDS ORDERED: hydrALAZINE 20 MG/ML VIAL SLOW IVP PRN (23:30)
[2018-04-10] MEDS ORDERED: HYDROcodone/Acetaminophen 5/325 mg Tablet PO PRN (23:30)
[2018-04-10] MEDS ORDERED: Diabetic Tussin 200 MG/10 ML UDCUP PO PRN (23:30)
[2018-04-10] MEDS ORDERED: Bisacodyl 10 MG SUPP PR PRN (23:30)
[2018-04-10] MEDS ORDERED: Loperamide HCl 2 MG CAP PO PRN (23:30)
[2018-04-10] MEDS ORDERED: Calcium Carbonate 500 MG ChewTAB PO PRN (23:30)
[2018-04-10] MEDS ORDERED: Ondansetron PF 4 MG/2 ML Vial IVP PRN (23:30)
[2018-04-11] MEDS ORDERED: traMADol HCl 50 MG TAB PO PRN (01:19)
--- NOTE | 2018-04-11 01:46 | HP ---
PRIMARY CARE PHYSICIAN: [facility] Call admission. The patient is seen and examined on the day of 04/10/2018. REASON FOR ADMISSION: Generalized weakness, left carotid artery stenosis, mechanical fall. HISTORY OF PRESENT ILLNESS: An 87-year-old female who lives at [facility]. The patient had episode of fall and she felt dizzy and lost her balance and she fell on her left side of the face. She injured behind of her left ear. She was complaining of left shoulder pain after falling. She denies any loss of consciousness. She denies any chest pain or palpitation. She denies any constipation, diarrhea, melena, or hematochezia. She denies any fever or chills. She denies any UTI symptoms. In the emergency room, the patient had a full trauma workup including CT brain, CT cervical spine, and knee x-ray, shoulder x-ray, were all unremarkable. CT cervical spine, suspected carotid stenosis. All other blood test was unremarkable in the emergency room, the patient is being admitted for observation for monitoring overnight. REVIEW OF SYSTEMS: CONSTITUTIONAL: Negative for weight loss or gain, ability to conduct usual activities. SKIN: Negative for rash, itching. EYES: Negative for double vision, pain. ENT/MOUTH: Negative for nose bleeding, neck stiffness, pain, tenderness. CARDIOVASCULAR: Negative for palpitations, dyspnea on exertion, orthopnea. RESPIRATORY: Negative for shortness of breath, wheezing, cough, hemoptysis, fever or night sweats. GASTROINTESTINAL: Negative for poor appetite, abdominal pain, heartburn, nausea , vomiting, constipation, or diarrhea. GENITOURINARY: Negative for urgency, frequency, dysuria, nocturia. MUSCULOSKELETAL: Negative for pain, swelling. NEUROLOGIC/PSYCHIATRIC: Negative for anxiety, depression. ALLERGY/IMMUNOLOGIC: Negative for skin rash, bleeding tendency. Please see my HPI for pertinent positive and negative. All other review of systems reviewed and negative except as mentioned in HPI. PAST MEDICAL HISTORY: COPD, CAD with stent, Alzheimer dementia, chronic physical deconditioning, temporal arteritis, chronic diastolic heart failure, macular degeneration, paroxysmal atrial fibrillation, hypertension, dyslipidemia, degenerative joint disease, history of CVA, history of recurrent falls. PAST SURGICAL HISTORY: Hysterectomy, cholecystectomy, appendicectomy, hip surgery, cardiac catheterization with stent placement. PAST PSYCHIATRIC HISTORY: Anxiety and depression. ALLERGIES: NO KNOWN DRUG ALLERGIES. SOCIAL HISTORY: The patient lives at [facility]. The patient does not have any other family member around at this point. No history of tobacco, alcohol, or illicit drug abuse. FAMILY HISTORY: Heart disease and congestive heart failure runs among several family members. CURRENT HOME MEDICATIONS: 1. Ranexa 1000 mg twice daily. 2. Lasix 20 mg daily. 3. Florastor 250 mg daily. 4. Lipitor 20 mg p.o. daily. 5. Valsartan 320 mg daily. 6. MiraLAX 17 g p.o. daily. 7. Amlodipine 10 mg daily. 8. Toprol-XL 50 mg twice daily. 9. Magnesium 400 mg daily. 10. Vitamin D3 5000 units p.o. daily. 11. Vitamin B12 500 mcg daily. 12. Ocuvite one tablet daily. 13. Folic acid 1 mg daily. 14. Aspirin 325 mg p.o. daily. 15. DuoNeb q.6 hourly p.r.n. 16. Symbicort 2 puffs inhalation b.i.d. EMERGENCY ROOM COURSE: Reviewed. PHYSICAL EXAMINATION: VITAL SIGNS: On arrival, blood pressure 145/41, pulse 70, respiratory rate 14, temperature 97.7, saturation 97%. Weight 77.1 kg. GENERAL: The patient is currently alert, awake, follows simple commands, in no obvious acute distress. HEENT: Head; normocephalic, atraumatic. Eyes; pupils round, reactive to light. Extraocular muscle intact. ENT; oropharynx within normal limits. Moist mucous membranes. No oral lesion. No pharyngeal erythema. No exudate. NECK: Supple. No JVD. No thyromegaly. No carotid bruit. No jugular venous distention. LUNGS: Clear to auscultation without any rhonchi or rales. CARDIAC: S1 and S2, regular. No murmur. No gallop. No rub. ABDOMEN: Soft. Bowel sounds present. Nontender. Nondistended. No organomegaly. No mass. No suprapubic tenderness. BACK: Unremarkable. No CVA tenderness. EXTREMITIES: Upper extremities; passive movement of all joints are normal. Lower extremity, no edema. Good distal pulsation. HEMATOLOGICAL SYSTEM: No lymphadenopathy. NEUROLOGIC: Nonfocal examination. SKIN: No skin rash. The patient does have some abrasion behind of her left ear after fall. SIGNIFICANT LABORATORY DATA: X-ray shoulder did not show any fracture or dislocation. X-ray knee did not show any fracture or dislocation. X-ray abdomen with chest x-ray showing no acute cardiopulmonary process and nonspecific bowel gas pattern. CT cervical spine showed carotid stenosis, but no fracture or dislocation. CT brain negative for any acute intracranial process. Echocardiography recently showed EF 55% to 60%, moderate mitral regurgitation, diastolic dysfunction. CBC: WBC 9.9, hemoglobin 10.8, MCV 106, platelets 266. Sodium 137, potassium 4.3, chloride 102, carbon dioxide 24, BUN 29, creatinine 1.32, glucose 147, calcium 9.7. LFT: AST 17, ALT 20, alkaline phosphatase 121, albumin 3.6. Cardiac enzyme negative x2. BNP 180.3. Urinalysis normal. ASSESSMENT AND PLAN: 1. Dizziness and subsequent mechanical fall. Rule out any arrhythmia. We will monitor 24 hours on telemetry floor. Currently, cardiac enzyme negative and EKG is not showing any ischemic changes. 2. Mild laceration over posterior aspect of the left ear. The patient needs supportive care. CT brain is negative for any intracranial process. 3. Macrocytic anemia. The patient will continue folic acid and vitamin B12 therapy. 4. Chronic kidney disease, stage 3. We will monitor renal function. 5. Chronic obstructive pulmonary disease, currently stable without any flare up. Continue DuoNeb and Dulera as per home dosage. 6. Paroxysmal atrial fibrillation. We will continue metoprolol 50 mg p.o. twice daily. 7. Hypertension. We will continue amlodipine 10 mg p.o. daily. 8. Chronic diastolic heart failure, currently compensated and stable. 9. Coronary artery disease with stent. Continue aspirin along with Lipitor 20 mg p.o. daily. 10. Carotid stenosis, suspected on CT scan. We will obtain carotid ultrasound. 11. Alzheimer dementia. Supportive care, chronic physical deconditioning PT, OT , and the patient will need eventual placement to [facility]. 12. Dyslipidemia. Continue Lipitor 20 mg p.o. at bedtime. 13. DVT prophylaxis not needed because we are expecting discharge in 24 hours. 14. Gastrointestinal prophylaxis. Pepcid 20 mg p.o. b.i.d. CODE STATUS: The patient is full code at this point. The patient does not have any surrogate decision maker and will keep as a full code. DISPOSITION PLAN: Based on clinical course. Job ID: [id number] [facility]
[2018-04-11 01:53] LABS: Troponin I Less than 0.010 ng/mL (< 0.028)
[2018-04-11 05:19] LABS: #Eosinphils 0.1 thou/uL (0.0-0.7); #Lymphocytes 2.4 thou/uL (1.20-3.40); #Monocytes 0.7 thou/uL (0.11-0.59); #Neutrophils 4.4 thou/uL (1.40-6.50); %Basophils 0.5 % (0.0-1.0); %Eosinophils 1.7 % (0.0-10.0); %Monocytes 8.6 % (0.0-10.0); %Neutrophils 58.1 % (42.0-75.0); Hemoglobin 9.9 g/dL (12.0-16.0); Mean Corpuscular Hemoglobin 34.9 pg (27.0-31.0); Platelet Count 252 thou/uL (130-400); RBC Distribution Width 11.7 % (11.5-14.5); Red Blood Cell (RBC) Count 2.83 mill/uL (4.20-5.40); White Blood Cell (WBC) Count 7.6 thou/uL (4.8-10.8)
[2018-04-11 05:33] LABS: Anion Gap 14 mmol/L (10-20); BUN (Urea Nitrogen) 23 mg/dL (9.8-20.1); Calc. Creatinine Clearance 50 mL/min (70-130); Calcium 9.2 mg/dL (7.8-10.44); Carbon Dioxide 25 mmol/L (23-31); Chloride 104 mmol/L (98-107); Estimated GFR-MDRD 50; Glucose 107 mg/dL (83-110); Potassium 4.2 mmol/L (3.5-5.1); Sodium 139 mmol/L (136-145)
[2018-04-11] MEDS: Mometasone/Formoterol 120 PUFF INHALER INH SCH ×2 (07:12→19:11)
[2018-04-11] MEDS ORDERED: Amlodipine 10 MG TAB PO SCH (09:00)
[2018-04-11] MEDS ORDERED: Aspirin 325 MG TAB PO SCH (09:00)
[2018-04-11] MEDS ORDERED: Senokot S 8.6-50 MG TAB PO PRN (09:00)
[2018-04-11] MEDS ORDERED: Furosemide 20 MG TAB PO SCH (09:00)
[2018-04-11] MEDS: Polyethylene Glycol 3350 17 GM Packet PO SCH (09:42)
[2018-04-11] MEDS: Folic Acid 1 MG TAB PO SCH (09:44)
[2018-04-11] MEDS: Aspirin 325 MG TAB PO SCH (09:44)
[2018-04-11] MEDS: Vit A,C & E/Lutein/Minerals Tablet PO SCH (09:44)
[2018-04-11] MEDS: Famotidine 20 MG TAB PO SCH ×2 (09:45→20:44)
[2018-04-11] MEDS: Saccharomyces boulardii 250 MG CAP PO SCH (09:45)
[2018-04-11] MEDS: Cyanocobalamin (Vitamin B-12) 1,000 MCG TAB PO SCH (09:45)
[2018-04-11] MEDS: Atorvastatin Calcium 20 MG TAB PO SCH (09:46)
[2018-04-11] MEDS: Magnesium Oxide 400 MG TAB PO SCH (09:46)
--- NOTE | 2018-04-11 10:14 | ULT ---
ULTRASOUND CAROTID DOPPLER STANDARD: HISTORY: Carotid stenosis. COMPARISON: None. FINDINGS: Real-time, eddy scale, color Doppler, and spectral analysis of the extracranial carotid and vertebral arteries was performed. There is extensive atherosclerotic plaque of both carotid bulbs. There are elevated peak systolic ve locities within both internal carotid arteries, 50-69% stenosis. There is antegrade flow within both vertebral arteries. IMPRESSION: 50-69% stenosis of both internal carotid arteries. CT angiogram may be beneficial if clinically willie anted. POS: [facility]
--- NOTE | 2018-04-11 16:32 | PDOC.PN ---
- Subjective Encounter Start Date: 04/11/18 Encounter Start Time: 16:30 Patient lying in bed with family member at bedside. She denies chest pain, shortness of breath or abdominal pain. She reports dizziness upon standing, orthos + - Objective Resuscitation Status - Order Detail: 04/10/18 21:36 Resuscitation Status Routine Resuscitation Status: FULL: Full Resuscitation MAR Reviewed: Yes Vital Signs & Weight: Vital Signs (12 hours) Temp Pulse Pulse Pulse Pulse Resp BP 04/11/18 11:38 98.1 F 63 16 04/11/18 10:47 62 68 62 04/11/18 10:02 60 60 04/11/18 09:45 61 127/62 04/11/18 07:17 98.3 F 61 20 04/11/18 07:12 61 16 BP BP BP BP BP BP BP 04/11/18 11:38 141/63 H 129/62 159/71 H 04/11/18 10:47 150/69 H 123/58 L 137/66 04/11/18 10:02 145/62 H 150/65 H 04/11/18 09:45 04/11/18 07:17 127/62 04/11/18 07:12 Pulse Ox 04/11/18 11:38 95 04/11/18 10:47 04/11/18 10:02 04/11/18 09:45 04/11/18 07:17 95 04/11/18 07:12 96 Weight Weight 175 lb 14.4 oz I&O: 04/10/18 04/11/18 04/12/18 06:59 06:59 06:59 Intake Total 500 Output Total 1300 Balance -800 Result Diagrams: 04/11/18 04:46 04/11/18 04:46 Radiology Reviewed by me: Yes Phys Exam - Physical Examination Constitutional: NAD HEENT: PERRLA, moist MMs, oral pharynx no lesions Neck: no nodes, no JVD Respiratory: no wheezing, no rales Cardiovascular: RRR, no significant murmur Gastrointestinal: soft, positive bowel sounds Musculoskeletal: no edema, pulses present Neurological: non-focal, moves all 4 limbs Lymphatic: no nodes Psychiatric: normal affect, A&O x 3 Skin: no rash, cap refill <2 seconds Dx/Plan (1) Orthostatic hypotension Code(s): I95.1 - ORTHOSTATIC HYPOTENSION Status: Acute (2) Carotid stenosis Code(s): I65.29 - OCCLUSION AND STENOSIS OF UNSPECIFIED CAROTID ARTERY Status : Acute (3) CHF, acute on chronic Code(s): I50.9 - HEART FAILURE, UNSPECIFIED Status: Acute Comment: Pt is on IV lasix, COntinue to Monitor Chest Xray looks stbale from few days. (4) Dementia Code(s): F03.90 - UNSPECIFIED DEMENTIA WITHOUT BEHAVIORAL DISTURBANCE Status: Acute - Plan cont current plan of care, plan discussed w/ family, PT/OT * D/c home dose of lasix * Monitor vitals, +orthostatic hypotension * Carotid doppler showing 50-69% stenosis, continue medical management with ASA and statin * Continue other home medications * PT/OT * Possible discharge in the am if BPs improved
[2018-04-11] MEDS ORDERED: Senokot 8.6 MG TAB PO SCH (21:00)
[2018-04-11] MEDS ORDERED: Rosuvastatin 10 MG TAB PO SCH (21:00)
[2018-04-12] MEDS: Mometasone/Formoterol 120 PUFF INHALER INH SCH ×2 (08:00→18:01)
[2018-04-12] MEDS ORDERED: Fludrocortisone Acetate 0.1 MG TAB PO SCH (09:00)
[2018-04-12] MEDS ORDERED: Amlodipine 5 MG TAB PO SCH (09:00)
[2018-04-12] MEDS: Aspirin 325 MG TAB PO SCH (09:43)
[2018-04-12] MEDS: Cyanocobalamin (Vitamin B-12) 1,000 MCG TAB PO SCH (09:44)
[2018-04-12] MEDS: Folic Acid 1 MG TAB PO SCH (09:44)
[2018-04-12] MEDS: Atorvastatin Calcium 20 MG TAB PO SCH (09:44)
[2018-04-12] MEDS: Famotidine 20 MG TAB PO SCH (09:45)
[2018-04-12] MEDS: Vit A,C & E/Lutein/Minerals Tablet PO SCH (09:45)
[2018-04-12] MEDS: Saccharomyces boulardii 250 MG CAP PO SCH (09:45)
[2018-04-12] MEDS: Magnesium Oxide 400 MG TAB PO SCH (09:45)
[2018-04-12] MEDS: Polyethylene Glycol 3350 17 GM Packet PO SCH (09:47)
[2018-04-12 16:01] VITALS: BP 148/67; TEMP 98
--- NOTE | 2018-04-13 23:35 | EKG ---
Test Reason : Blood Pressure : / mmHG Vent. Rate : 061 BPM Atrial Rate : 060 BPM P-R Int : 000 ms QRS Dur : 092 ms QT Int : 454 ms P-R-T Axes : 000 031 070 degrees QTc Int : 457 ms Junctional rhythm Abnormal ECG Confirmed by CHECO HARDY MD ([id number]), newspaper photo editor NIDA ARAUJO ([id number]) on 04/13/2018 11:35:16 PM Referred By: Confirmed By:CHECO HARDY MD
== END 2018-04-12 18:26 | DRG 312 ==
LOC: ERS 17:42 → OBSVTOIN 21:35 → 2SW 21:35
PROVIDERS: ADMIT Emergency Medicine; ATTEND Emergency Medicine
DX: I95.1 Orthostatic hypotension (principal); I50.33 Acute on chronic diastolic (congestive) heart failure; I13.0 Hypertensive heart and chronic kidney disease with heart failure and stage 1 through stage 4 chronic kidney disease, or unspecified chronic kidney disease; I65.22 Occlusion and stenosis of left carotid artery; S01.312A Laceration without foreign body of left ear, initial encounter; W18.30XA Fall on same level, unspecified, initial encounter; Y92.129 Unspecified place in nursing home as the place of occurrence of the external cause; J44.9 Chronic obstructive pulmonary disease, unspecified; I25.10 Atherosclerotic heart disease of native coronary artery without angina pectoris; G30.9 Alzheimer's disease, unspecified; F02.80 Dementia in other diseases classified elsewhere, unspecified severity, without behavioral disturbance, psychotic disturbance, mood disturbance, and anxiety; N18.3 Chronic kidney disease, stage 3 (moderate); I48.0 Paroxysmal atrial fibrillation; F41.9 Anxiety disorder, unspecified; E78.5 Hyperlipidemia, unspecified; D53.9 Nutritional anemia, unspecified; F32.9 Major depressive disorder, single episode, unspecified; H35.30 Unspecified macular degeneration; I34.0 Nonrheumatic mitral (valve) insufficiency; R53.81 Other malaise; M25.512 Pain in left shoulder; M25.561 Pain in right knee; Z91.81 History of falling; Z86.73 Personal history of transient ischemic attack (TIA), and cerebral infarction without residual deficits; Z82.49 Family history of ischemic heart disease and other diseases of the circulatory system; Z95.5 Presence of coronary angioplasty implant and graft; Z79.899 Other long term (current) drug therapy; Z79.82 Long term (current) use of aspirin; Z79.51 Long term (current) use of inhaled steroids
CPT/HCPCS: 36415; 51701; 70450; 72125; 74022; 80048; 80053; 81003; 82533; 83735; 83880; 84443; 84484; 85025; 87086; 93005; 93880; A4353